=== PATIENT | male | born 1955 | race Caucasian/White ===

== ENCOUNTER 2016-12-04 10:18 | Emergency (ER) | payer OTHER, MEDICAID ==
[~2016-12-04] VITALS: Ht 175.3 cm; Wt 81.6 kg
[~2016-12-04 10:18] MED LIST: KLONOPIN1 MG ORAL; LEVOTHYROXINE25 MCG ORAL; LISINOPRIL5 MG ORAL; METFORMIN HCL500 M1 ORAL; NORCO 10/3251 EA ORAL; NORCO 5-325 TA1 EACH ORAL; PERCOCET1 TAB ORAL; XERALTO
[2016-12-04 10:54] VITALS: BP 171/139
[2016-12-04 11:18] VITALS: BP 138/62
[2016-12-04] MEDS ORDERED: PERCOCET 5-3251 EACH ORAL (11:43)
[2016-12-04 11:58] VITALS: BP 139/85
--- NOTE | 2016-12-05 13:40 | Emergency Room Report ---
History of Present Illness General Chief Complaint: General Complaint Source: Patient Present Illness HPI Patient is a 61-year-old male who presented after having increased neck pain. Patient gradual onset of symptoms. Patient states he ran out of his pain medication. Patient had prior history of cervical stenosis. Patient stated that he had previously been taking Percocet for pain. Patient had reports of a numbness to both upper extremities. Patient was have any fever. He denied any recent trauma. He states he's had prior imaging studies. Allergies: Coded Allergies: No Known Allergies (Verified Allergy, Unknown, 12/02/09) Patient History Past Medical History: see triage record Reviewed Nursing Documentation: PMH: Agreed, PSxH: Agreed Nursing Documentation-PMH Past Medical History: No History, Except For Hx Cardiac Problems: Yes - A-fib Hx Hypertension: Yes - Arthritis Hx Diabetes: Yes Hx Gastrointestinal Problems: Yes - VENTRAL HERNIA Review of Systems All Other Systems: negative except mentioned in HPI Physical Exam Vital Signs Date Time Temp Pulse Resp B/P Pulse Ox O2 Delivery O2 Flow Rate FiO2 12/04/16 10:29 97.5 88 16 152/75 97 Room Air Sp02 EP Interpretation: reviewed, normal General Appearance: normal inspection, well appearing, no apparent distress, alert, GCS 15 Head: atraumatic ENT: normal ENT inspection, hearing grossly normal, normal voice Neck: no bony tend, limited range of motion Respiratory: normal inspection, lungs clear, normal breath sounds, no respiratory distress, no retraction, no wheezing Cardiovascular #1: regular rate, rhythm, no edema Gastrointestinal: normal inspection, normal bowel sounds, non tender, soft, no guarding, no hernia Genitourinary: no CVA tenderness Musculoskeletal: normal inspection, back normal, normal range of motion, other - bilateral shoulder painful ROM. Neurologic: normal inspection, alert, oriented x3, responsive, supervisor electric III-XII nml as tested, speech normal Psychiatric: normal inspection, judgement/insight normal, mood/affect normal Skin: normal inspection, normal color, no rash Medical Decision Making Diagnostic Impression: Primary Impression: Chronic pain Additional Impression: Encounter for generalized patient complaints ER Course Patient presented for neck pain. Differential diagnosis included vertebral artery dissection, myocardial infarction, cervical fracture, arthritis, spondylolithises. The patient noted to have a markedly elevated blood pressure was given oral clonidine. Patient was given prescription for pain medications. The patient is advised to follow up with primary care doctor in 1-2 days. Patient is advised to return if any worsening condition or if any changes in status that are concerning. Last Vital Signs Date Time Temp Pulse Resp B/P Pulse Ox O2 Delivery O2 Flow Rate FiO2 12/04/16 11:58 97.5 74 19 139/85 99 Room Air Status: improved Disposition: HOME, SELF-CARE Condition: Stable Scripts Oxycodone/Acetaminophen 5-325* (PERCOCET 5-325 MG TABLET*) 1 Each Tablet 1 TAB ORAL Q4H Y for For Pain, #15 TAB 0 Refills Prov: Guillermo Dodson 12/04/16 Referrals: NON PHYSICIAN (PCP) Patient Instructions: Chronic Pain Guillermo Dodson Dec 05, 2016 13:40
--- NOTE | 2016-12-22 14:15 | Cardiology Report ---
APPROVED REPORT EKG Measurement Heart [id number] Normal sinus rhythm Possible Left atrial enlargement Low voltage QRS Borderline ECG
== END 2016-12-04 11:58 | disposition home or self-care (01) ==
LOC: EMR 10:56
DX: G89.29 Other chronic pain (principal); M54.2 Cervicalgia; E11.9 Type 2 diabetes mellitus without complications; I10 Essential (primary) hypertension; I48.91 Unspecified atrial fibrillation; M19.90 Unspecified osteoarthritis, unspecified site
CPT/HCPCS: 93005; 99283

== ENCOUNTER 2017-02-14 19:55 | Emergency (ER) | payer MEDICARE, MEDICAID ==
[~2017-02-14] VITALS: Ht 175.3 cm; Wt 83.9 kg
[~2017-02-14 19:55] MED LIST changes: +PERCOCET 5-3251 EACH ORAL
[2017-02-14 20:24] VITALS: BP 110/76
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
== END 2017-02-14 20:25 | disposition home or self-care (01) ==
LOC: EMR 20:18
DX: S49.91XA Unspecified injury of right shoulder and upper arm, initial encounter (principal); G89.4 Chronic pain syndrome; Z88.8 Allergy status to other drugs, medicaments and biological substances; I10 Essential (primary) hypertension; Z95.0 Presence of cardiac pacemaker; E11.9 Type 2 diabetes mellitus without complications; X50.0XXA Overexertion from strenuous movement or load, initial encounter; Y93.9 Activity, unspecified; Y92.9 Unspecified place or not applicable
CPT/HCPCS: 99282

== ENCOUNTER 2018-02-20 14:41 | Emergency (ER) | payer MEDICARE, MEDICAID ==
[~2018-02-20] VITALS: Ht 172.7 cm; Wt 86.2 kg
[2018-02-20 14:51] VITALS: BP 128/82
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
[2018-02-20] MEDS ORDERED: NUCYNTA75 MG PO (15:10)
[2018-02-20] MEDS ORDERED: oxyCODONE HCL/Acetaminophen 5/325mg ORAL ONE (15:15)
[2018-02-20] MEDS ORDERED: LIDODERM700 M1 TOPIC (15:17)
[2018-02-20 15:20] VITALS: BP 128/82
== END 2018-02-20 15:51 | disposition home or self-care (01) ==
LOC: EMR 14:55
DX: G89.29 Other chronic pain (principal); M25.511 Pain in right shoulder; E11.9 Type 2 diabetes mellitus without complications; I10 Essential (primary) hypertension; Z95.0 Presence of cardiac pacemaker
CPT/HCPCS: 99284

== ENCOUNTER 2018-05-11 15:34 | Emergency (ER) | payer MEDICARE, MEDICAID ==
[~2018-05-11] VITALS: Ht 167.6 cm; Wt 86.2 kg
[~2018-05-11 15:34] MED LIST changes: +LIDODERM700 M1 TOPIC; +NUCYNTA75 MG PO
--- NOTE | 2018-05-11 16:47 | Emergency Room Report ---
History of Present Illness General Chief Complaint: Toothache Present Illness HPI 62-year-old male presents emergency department complaining of localized have 10 in severity pain and tenderness to one of his left lower teeth 2 days. Patient reports that he has been having dental problems with that tooth and it has broken off at the gumline. Denies fevers, chills, trauma or fall, swollen tender lymph nodes, neck pain. Patient reports he has a an appointment with his dentist for tomorrow. Patient states that his dentist has been recommending root canal. Allergies: Coded Allergies: KETOROLAC (Verified Allergy, Unknown, 02/20/18) MEPERIDINE (Verified Allergy, Unknown, 02/14/17) PT. REPORT THAT WHEN HE TAKE DEMEROL IT CAUSES HIM "STINGS ON MY FEET, AND MY ARM." Patient History Past Medical History: see triage record Past Surgical History: none Reviewed Nursing Documentation: PMH: Agreed; PSxH: Agreed Nursing Documentation-PMH Hx Cardiac Problems: Yes - A-fib Hx Hypertension: Yes - BILATERAL SHOULDER RECONSTRUCTION Hx Pacemaker: Yes Hx Diabetes: Yes Review of Systems All Other Systems: negative except mentioned in HPI Physical Exam Vital Signs Date Time Temp Pulse Resp B/P (MAP) Pulse Ox O2 Delivery O2 Flow Rate FiO2 05/11/18 15:48 98.2 86 20 111/78 96 Room Air 98.2 Sp02 EP Interpretation: reviewed, normal General Appearance: no apparent distress, alert, GCS 15, non-toxic Head: normocephalic, atraumatic Eyes: bilateral eye normal inspection, bilateral eye PERRL ENT: hearing grossly normal, normal voice, other - Tooth number 18 is broken off, there is tenderness to percussion to the remaining structure of the tooth. there is some erythema at the base of the tooth, no pus, no palpable fluctuance. poor dentition overall. Neck: full range of motion Respiratory: lungs clear, normal breath sounds, speaking full sentences Cardiovascular #1: regular rate, rhythm Musculoskeletal: back normal, gait/station normal, normal range of motion, non- tender Neurologic: alert, oriented x3, responsive, motor strength/tone normal, sensory intact, speech normal, grossly normal Psychiatric: judgement/insight normal Skin: normal color, no rash, warm/dry, well hydrated Lymphatic: no adenopathy Medical Decision Making PA Attestation Dr. Snyder is my supervising Physician whom patient management has been discussed with. Diagnostic Impression: Primary Impression: Acute pericoronitis ER Course 62-year-old male presents emergency department complaining of localized have 10 in severity pain and tenderness to one of his left lower teeth 2 days. Patient reports that he has been having dental problems with that tooth and it has broken off at the gumline. Denies fevers, chills, trauma or fall, swollen tender lymph nodes, neck pain. Patient reports he has a an appointment with his dentist for tomorrow. Patient states that his dentist has been recommending root canal. denies swelling, reports some erythema about the tooth. significant increase in his sensitivity of tooth x 2 days. Ddx considered but are not limited to cellulitis, dental abscess, orbital cellulitis, d/l tooth, dental pain. trigeminal neuralgia Vital signs: are WNL, pt. is afebrile H&PE are most consistent with pericoronitis, no palpable abscess. ORDERS: none required at this time, the diagnosis is clinical ED INTERVENTIONS: -Holland PO DISCHARGE: At this time pt. is stable for d/c to home. Will provide printed patient care instructions, and any necessary prescriptions. Care plan and follow up instructions have been discussed with the patient prior to discharge. Last Vital Signs Date Time Temp Pulse Resp B/P (MAP) Pulse Ox O2 Delivery O2 Flow Rate FiO2 05/11/18 15:48 98.2 86 20 111/78 96 Room Air 98.2 Disposition: HOME, SELF-CARE Condition: Stable Scripts Acetaminophen* (TYLENOL EXTRA STRENGTH*) 500 Mg Tablet 500 MG ORAL Q6H, #20 TAB 0 Refills Prov: Savanah Villegas 05/11/18 Amoxicillin* (AMOXIL*) 500 Mg Capsule 500 MG ORAL BID for 7 Days, #14 CAP Prov: Savanah Villegas 05/11/18 Patient Instructions: Dental Pain Additional Instructions: Take medications as directed. Follow up with a Dentist in 3-5 days, even if your symptoms have resolved. * * --Please review list of Dental clinics, if you do not already have a Dentist Return sooner to ED if new symptoms occur, or current symptoms become worse. Do not drink alcohol, drive, or operate heavy machinery for 6 hours from the time you were administered [place] in the ED, as this may cause drowsiness. - Please note that this Emergency Department Report was dictated using Kulizapropeller inspector technology software, occasionally this can lead to erroneous entry secondary to interpretation by the dictation equipment. Savanah Villegas May 11, 2018 16:47
[2018-05-11] MEDS ORDERED: AMOXICILLIN500 MG ORAL (16:48)
[2018-05-11] MEDS ORDERED: TYLENOL EXTRA500 MG ORAL (16:48)
[2018-05-11] MEDS ORDERED: Norco 5mg/325mg tab ORAL ONE (17:00)
[2018-05-11 17:06] VITALS: BP 119/76
[2018-05-11 17:20] VITALS: BP 119/76
== END 2018-05-11 17:20 | disposition home or self-care (01) ==
LOC: EMR 16:30
DX: K05.20 Aggressive periodontitis, unspecified (principal); E11.9 Type 2 diabetes mellitus without complications; I10 Essential (primary) hypertension; I48.91 Unspecified atrial fibrillation; Z95.0 Presence of cardiac pacemaker
CPT/HCPCS: 99283

== ENCOUNTER 2019-05-13 18:38 | Emergency (ER) | payer MEDICARE, MEDICAID ==
[~2019-05-13] VITALS: Ht 175.3 cm; Wt 83.9 kg
[~2019-05-13 18:38] MED LIST changes: +AMOXICILLIN500 MG ORAL; +TYLENOL EXTRA500 MG ORAL
--- NOTE | 2019-05-13 19:35 | Emergency Room Report ---
History of Present Illness General Chief Complaint: Upper Extremity Injury Source: Patient Present Illness HPI 63-year-old male presents with right arm pain after falling out of bed, denies any numbness or tingling, he states that he just wants a quick pain shot and then he will leave he describes the pain is aching in nature aggravated with movement alleviated with rest severity is moderate, he denies any chest pain or shortness of breath, patient presents for evaluation Allergies: Coded Allergies: KETOROLAC (Verified Allergy, Unknown, 02/20/18) MEPERIDINE (Verified Allergy, Unknown, 02/14/17) PT. REPORT THAT WHEN HE TAKE DEMEROL IT CAUSES HIM "STINGS ON MY FEET, AND MY ARM." Patient History Past Medical History: see triage record Reviewed Nursing Documentation: PMH: Agreed; PSxH: Agreed Nursing Documentation-PMH Past Medical History: No History, Except For Hx Cardiac Problems: Yes - A-fib Hx Hypertension: Yes - BILATERAL SHOULDER RECONSTRUCTION Hx Pacemaker: Yes - left upper chest Hx Diabetes: Yes Review of Systems All Other Systems: negative except mentioned in HPI Physical Exam Vital Signs Date Time Temp Pulse Resp B/P (MAP) Pulse Ox O2 Delivery O2 Flow Rate FiO2 05/13/19 19:05 98.2 118 20 117/74 (88) 97 Room Air Sp02 EP Interpretation: reviewed, normal General Appearance: well appearing, no apparent distress, alert Head: normocephalic, atraumatic Eyes: bilateral eye PERRL, bilateral eye EOMI ENT: uvula midline, moist mucus membranes Neck: supple, thyroid normal, supple/symm/no masses Respiratory: lungs clear, no respiratory distress, no retraction, no accessory muscle use Cardiovascular #1: normal peripheral pulses, regular rate, rhythm, no edema, no gallop, no murmur Gastrointestinal: non tender, soft, no guarding, no rebound Musculoskeletal: normal inspection, other - Right arm: 2+ radial pulses radial median ulnar nerve intact, sensation grossly intact, doorshaker strength 5 out of 5, patient is able to raise his right arm, no obvious deformity Neurologic: alert, oriented x3 Psychiatric: mood/affect normal Skin: no rash, warm/dry Medical Decision Making Diagnostic Impression: Primary Impression: Muscle contusion ER Course Patient states he did not drive to the hospital he states he was dropped off he he is requesting a pain shot that is strong, will provide patient with a dose of Dilaudid here, patient was counseled that I cannot give him a prescription for opioids, most likely has a muscle contusion, patient was offered an x-ray, and refused Disposition home with return precautions Last Vital Signs Date Time Temp Pulse Resp B/P (MAP) Pulse Ox O2 Delivery O2 Flow Rate FiO2 05/13/19 19:05 98.2 118 20 117/74 (88) 97 Room Air Disposition: HOME, SELF-CARE Condition: Stable Scripts Gabapentin* (GABAPENTIN*) 400 Mg Capsule 400 MG ORAL THREE TIMES A DAY, #21 CAP 0 Refills Prov: Hitesh Webb MD 05/13/19 [facility] Patient Instructions: Contusion, [id number] Additional Instructions: The patient was provided with discharge instructions, notified to follow-up with a primary care doctor and or specialist in the next 24-48 hours, and to return to the ED if they have worsening of their symptoms. Please note that this report is being documented using food.de technology. This can lead to erroneous entry secondary to incorrect interpretation by the dictating instrument. Hitesh Webb MD May 13, 2019 19:35
[2019-05-13] MEDS ORDERED: GABAPENTIN400 MG ORAL (19:38)
[2019-05-13] MEDS ORDERED: Hydromorphone 0.5mg/0.5ml inj IM ONE (19:45)
[2019-05-13 19:55] VITALS: BP 117/74
== END 2019-05-13 19:55 | disposition home or self-care (01) ==
LOC: EMR 19:24
DX: S40.021A Contusion of right upper arm, initial encounter (principal); Z88.8 Allergy status to other drugs, medicaments and biological substances; I48.91 Unspecified atrial fibrillation; E11.9 Type 2 diabetes mellitus without complications; W06.XXXA Fall from bed, initial encounter; Y92.9 Unspecified place or not applicable
CPT/HCPCS: 96372; 99283; J1170